=== PATIENT | female | born 1940 | race Caucasian/White ===

== ENCOUNTER 2019-08-09 10:42 | Emergency (ER) | payer MEDICARE, OTHER, SELFPAY ==
[2019-08-09] VITALS (8 sets, daily range): BP systolic 101–122; BP diastolic 46–70; PULSE 64–86; RESP 16–21; TEMP 36.9; O2SAT 92–96; BMI 27.6
--- NOTE | 2019-08-09 11:04 | CTR_ITS ---
PROCEDURE INFORMATION: Exam: CT Head Without Contrast Exam date and time: 08/09/2019 12:17 PM Age: 79 years old Clinical indication: Altered mental status/memory loss; Additional info: Fever AMS TECHNIQUE: Imaging protocol: Computed tomography of the head without contrast. Radiation optimization: All CT scans at this facility use at least one of these dose optimization techniques: automated exposure control; mA and/or kV adjustment per patient size (includes targeted exams where dose is matched to clinical indication); or iterative reconstruction. COMPARISON: CT head wo con* [id number] 09/25/2017 7:06 AM RADIATION DOSE METRICS: Total DLP: 873.41 mGy-cm FINDINGS: Brain: Mild cerebral atrophy and ischemic leukoencephalopathy. Ventricles: Normal. No ventriculomegaly. Bones/joints: Unremarkable. No acute fracture. Sinuses: Increased moderate right maxillary sinus disease. Mastoid air cells: Visualized mastoid air cells are well aerated. Vasculature: Moderate calcified intracranial atherosclerotic vessel disease. Soft tissues: Unremarkable. CT/CT head wo con* [id number] IMPRESSION: 1. Increased moderate right maxillary sinus disease. 2. No acute intracranial findings. Radiation Dose CTDIVOL = (mGy): DLP = 873.41 (mGy-cm)
--- NOTE | 2019-08-09 11:04 | XRR_ITS ---
PROCEDURE INFORMATION: Exam: XR Chest, 1 View Exam date and time: 08/09/2019 12:36 PM Age: 79 years old Clinical indication: Fever and other: AMS TECHNIQUE: Imaging protocol: XR of the chest Views: 1 view. COMPARISON: CR Chest 1 [place] [id number] 11/07/2017 8:15 PM FINDINGS: Lungs: Unremarkable. No consolidation. Pleural space: Unremarkable. No pleural effusion. No pneumothorax. Heart/Mediastinum: Unremarkable. No cardiomegaly. Vasculature: Calcification of the thoracic aorta and/or great vessels consistent with atherosclerotic vessel disease. Diaphragm: Stable elevation of the right hemidiaphragm consistent with eventration. Bones/joints: Mild thoracic spondylosis. XR/XR chest 1V portable [id number] IMPRESSION: Stable elevation of the right hemidiaphragm consistent with eventration.
--- NOTE | 2019-08-09 11:05 | ECG_ITS ---
Measurements Intervals [place] Rate: 81 P: 64 OR: 190 QRS: 16 QRSD: 94 T: 44 QT: 376 QTc: 439 SINUS RHYTHM LOW QRS VOLTAGE IN PRECORDIAL LEADS [QRS DEFLECTION < 1.0 mV IN CHEST LEADS] ANTEROSEPTAL MYOCARDIAL INFARCTION , OF INDETERMINATE AGE [40+ ms Q WAVE IN V1-V4] Compared to ECG 11/07/2017 20:14:54 Myocardial infarct finding now present ST (T wave) deviation no longer present Electronically Signed On 08-10-2019 7:47:23 CDT by Balbir Ruiz M.D. [email or web address]
[2019-08-09 11:17] LABS: Basophils % 0.5 %; Hematocrit 43.6 % (37.0-47.0); Hemoglobin 14.5 g/dL (11.5-15.3); Lymphocytes % 25.1 %; Mean Corpuscular HGB Conc 33.3 g/dL (30.0-36.0); Mean Corpuscular Hemoglobin 31.4 pg (28.0-34.0); Mean Corpuscular Volume 94.4 fL (81-99); Mean Platelet Volume 10.2 fL (7.4-10.4); Monocytes # 0.3 10^3/uL (0.2-0.9); Monocytes % 6.3 %; Neutrophils # 2.7 10^3/uL (1.8-7.7); Neutrophils % 66.8 %; Nucleated Red Blood Cells % 0 %; Platelet Count 273 10^3/cmm (130-400); Red Blood Count 4.62 10^6/uL (4.1-5.3); Red Cell Distribution Width 12.9 % (12.1-15.1)
[2019-08-09] MEDS: sodium chloride 0.9% 1,000 ML 999 ML IV (11:24)
[2019-08-09 11:25] LABS: Urine Color Yellow (Yellow)
[2019-08-09 11:26] LABS: Alanine Aminotransferase < 5 U/L (0-33); Albumin Level 3.9 g/dL (3.5-5.2); Alkaline Phosphatase 55 IU/L (35-105); Anion Gap 16.5 (5-19); Aspartate Amino Transferase 31 U/L (0-32); Blood Urea Nitrogen 30 mg/dL (8-23); Calcium 9.3 mg/dL (8.5-10.5); Carbon Dioxide 25 mmol/L (22-29); Chloride 106 mmol/L (98-107); Globulin 2.7 g/dL (1.3-4.6); Glucose 160 mg/dL (65-115); Osmolality Calculated 299 mOsm/kg (285-295); Potassium 3.5 mmol/L (3.5-5.1); Sodium 144 mmol/L (136-145); Total Bilirubin 0.8 mg/dL (0.15-1.2); Total Protein 6.6 g/dL (6.6-8.7)
[2019-08-09 11:26] LABS: Add Urine Microscopic? YES; Bilirubin Urine Neg (NEGATIVE); Blood Urine 2+ (Negative); Glucose Urine UA Norm (Normal); Ketones Urine 1+ (Negative); Leukocyte Esterase Urine Trace (Negative); Nitrate Urine Negative (Negative); Protein Urine 1+ (Negative); Urine Appearance Cloudy (CLEAR); Urobilinogen Urine 4 mg/dL (Negative); pH Urine 5 (5-7)
[2019-08-09 11:27] LABS: ABG PCO2 38.9 mmHg (35-45); ABG PH Result 7.45 (7.35-7.45); Arterial Blood Gas Hematocrit 44.4 % (37-47); Base Excess ABG 3.2 mmol/L (-2.0-2.0); Blood Gas Allen Test Pos; Blood Gas Sample Site Brachial, right; Blood Gas Sample Type Arterial; HCO3 ABG 27.3 mmol/L (22-26); Oxygen Device NC; PO2 ABG 67.4 mmHg (80.0-100.0)
[2019-08-09 11:30] LABS: Bacteria Urine 3+; Mucus Urine 4+; Transitional Epi Cells Urine 0-4 /hpf; WBC Urine 15-25 /hpf (0-5)
[2019-08-09 11:31] LABS: Add Urine Culture? Yes
--- NOTE | 2019-08-09 11:40 | W.ED.AMS ---
HPI - Altered Mental Status General: Chief Complaint: Altered Mental Status Stated Complaint: AMS; FEVER Time Seen by Provider: 08/09/19 10:45 History of Present Illness: HPI narrative: 79-year-old [facility] patient with a history of Lewy body dementia. She presents with decreased mental status, and a temperature in the penitentiary over 100. Staff states she is normally very conversant, but confused. They have noticed a decrease in oral intake, activity, and verbalization in the past day or so. MD complaint: altered mental status Onset (ago): hour(s) Timing confirmed by: caregiver Severity: moderate Review of Systems Const: Reports: fever(s); Denies: chills ENMT: Denies: swelling of lips/tongue, epistaxis or post nasal drip Card: Denies: chest pain, palpitations, irregular heart rhythm, swelling of feet/ankles or dyspnea on exertion Resp: Denies: dyspnea, productive cough, non-productive cough or wheezing GI: Denies: abdominal pain, nausea or vomiting : Denies: dysuria, urinary frequency or urinary urgency Musc: Denies: neck pain, back pain, joint redness or joint warmth Skin/Breast: Denies: rash, pruritus or erythema Neuro: Reports: confusion; Denies: headache(s) or dizziness Psych: Denies: anxiety PFSH ED PFSH: Social History Smoking and tobacco status: never smoked Physical Exam Const: GENERAL APPEARANCE: lethargic and frail appearing ORIENTATION/CONSCIOUSNESS: Yes oriented to person and Yes lethargic HENMT: COMMON NORMALS: normocephalic, external ears normal and Normal external nose present HEAD & SCALP: normocephalic FACE & SINUS: normal facial exam NOSE: Normal external nose present and No nasal discharge present EXTERNAL EAR: Yes external ears normal MOUTH: tongue normal THROAT: no peritonsillar mass Eye: COMMON NORMALS: Equal, round and reactive pupils present, EOMs intact bilaterally and conjunctivae normal EYELID: eyelids normal CONJUNCTIVA: Yes conjunctivae normal PUPIL: Yes Equal, round and reactive pupils present Neck/C-Spine: GENERAL: No tracheal deviation Chest: COMMONS NORMALS: normal inspection of the chest CHEST: No tenderness Resp: COMMON NORMALS: clear to auscultation bilaterally EFFORT & INSPECTION: No tachypneic, No respiratory distress, No retractions, No uses accessory muscles and No tracheal deviation AUSCULTATION: clear to auscultation bilaterally, no rhonchi, no wheezes and lung sounds not diminished Cardio: COMMON NORMALS: regular rate and regular rhythm RATE: regular rate RHYTHM: regular rhythm PERIPHERAL PULSES: radial pulses present GI: INSPECTION: No abdominal distension AUSCULTATION: No Hyperactive bowel sounds present and No Hypoactive bowel sounds present PALPATION: No Guarding due to palpation present (GI) and No Rigid due to palpation PERCUSSION: no dullness to percussion and no tympanic to percussion Neuro: SENSORIUM/ORIENTATION: Yes oriented to person and Yes lethargic Skin: COMMON NORMALS: no rashes or lesions noted GENERAL SKIN EXAM: no rashes or lesions noted Course Vital Signs: Vital signs: Vital Signs Temperature 98.5 F 08/09/19 10:50 Pulse Rate 72 08/09/19 14:40 Respiratory Rate 21 H 08/09/19 14:40 Blood Pressure 101/56 08/09/19 14:40 Pulse Oximetry 95 08/09/19 14:40 MDM - Altered Mental Status MDM Narrative: Medical decision making narrative: 79-year-old female with elevated temperature in the [facility]itent[facility], and some mental status change. Her white blood cell count is 4. Her BUN is 30. Her other laboratory is benign. She does have a urinalysis showing urinary tract infection. Head CT is negative for acute neurologic change, but there is presence of maxillary sinusitis. Chest x-ray is stable. She will be treated for the urinary tract infection which is the most likely cause of her fever and mental status change. She will be allowed back to the penit[facility]iary. Lab Data: Labs: Lab Results 08/09/19 08/09/19 08/09/19 Range/Units 10:32 10:32 11:05 WBC 4.0 (4.0-10.0) 10^3/ uL RBC 4.62 (4.1-5.3) 10^6/u L Hgb 14.5 (11.5-15.3) g/dL Hct 43.6 (37.0-47.0) % MCV 94.4 (81-99) fL MCH 31.4 (28.0-34.0) pg MCHC 33.3 (30.0-36.0) g/dL RDW 12.9 (12.1-15.1) % Plt Count 273 (130-400) 10^3/c mm MPV 10.2 (7.4-10.4) fL Neut % (Auto) 66.8 % Lymph % (Auto) 25.1 % Ferry % (Auto) 6.3 % Eos % (Auto) 1.0 % Baso % (Auto) 0.5 % Neut # (Auto) 2.7 (1.8-7.7) 10^3/u L Lymph # (Auto) 1.0 (0.8-4.8) 10^3/u L Ferry # (Auto) 0.3 (0.2-0.9) 10^3/u L Eos # (Auto) 0.0 (0.0-0.8) 10^3/u L Baso # (Auto) 0.0 (0.0-0.1) 10^3/u L Nucleated RBC % (a uto) 0 % Nucleated RBCs # 0.0 /100WBC Specimen Type Sample Site ABG pH (7.35-7.45) ABG pCO2 (35-45) mmHg ABG pO2 (80.0-100.0) mmH g ABG HCO3 (22-26) mmol/L ABG Base Excess (-2.0-2.0) mmol/ L Aakash Test Hematocrit (37-47) % O2 Delivery Device O2 Liters/Min % Used Car Make Ready Worker ID Sodium 144 (136-145) mmol/L Potassium 3.5 (3.5-5.1) mmol/L Chloride 106 (98-107) mmol/L Carbon Dioxide 25 (22-29) mmol/L Anion Gap 16.5 (5-19) BUN 30 H (8-23) mg/dL Creatinine 0.6 (0.5-0.9) mg/dL Glucose 160 H (65-115) mg/dL Calculated Osmolal ity 299 H (285-295) mOsm/k g Lactate (0.5-2.2) mmol/L Calcium 9.3 (8.5-10.5) mg/dL Total Bilirubin 0.8 (0.15-1.2) mg/dL AST 31 (0-32) U/L ALT < 5 (0-33) U/L Alkaline Phosphata se 55 (35-105) IU/L C-Reactive Protein 2.3 (0.0-4.9) mg/L Total Protein 6.6 (6.6-8.7) g/dL Albumin 3.9 (3.5-5.2) g/dL Globulin 2.7 (1.3-4.6) g/dL Urine Color Yellow (Yellow) Urine Appearance Cloudy A (CLEAR) Urine pH 5 (5-7) Ur Specific Gravit y 1.030 (1.005-1.030) Urine Protein 1+ H (Negative) Urine Glucose (UA) Norm (Normal) Urine Ketones 1+ H (Negative) Urine Blood 2+ H (Negative) Urine Nitrate Negative (Negative) Urine Bilirubin Neg (NEGATIVE) Urine Urobilinogen 4 H (Negative) mg/dL Ur Leukocyte Ann ase Trace H (Negative) Urine RBC 5-10 H (0-2) /hpf Urine WBC 15-25 H (0-5) /hpf Ur Squamous Epith Cells 5-10 H (0-5) Ur Transition Epit h Cell 0-4 /hpf Urine Bacteria 3+ H (NONE) Urine Mucus 4+ Urine Yeast Trace 08/09/19 08/09/19 Range/Units 11:15 11:30 WBC (4.0-10.0) 10^3/ uL RBC (4.1-5.3) 10^6/u L Hgb (11.5-15.3) g/dL Hct (37.0-47.0) % MCV (81-99) fL MCH (28.0-34.0) pg MCHC (30.0-36.0) g/dL RDW (12.1-15.1) % Plt Count (130-400) 10^3/c mm MPV (7.4-10.4) fL Neut % (Auto) % Lymph % (Auto) % Ferry % (Auto) % Eos % (Auto) % Baso % (Auto) % Neut # (Auto) (1.8-7.7) 10^3/u L Lymph # (Auto) (0.8-4.8) 10^3/u L Ferry # (Auto) (0.2-0.9) 10^3/u L Eos # (Auto) (0.0-0.8) 10^3/u L Baso # (Auto) (0.0-0.1) 10^3/u L Nucleated RBC % (a uto) % Nucleated RBCs # /100WBC Specimen Type Arterial Sample Site Brachial, right ABG pH 7.45 (7.35-7.45) ABG pCO2 38.9 (35-45) mmHg ABG pO2 67.4 L (80.0-100.0) mmH g ABG HCO3 27.3 H (22-26) mmol/L ABG Base Excess 3.2 H (-2.0-2.0) mmol/ L Aakash Test Pos Hematocrit 44.4 (37-47) % O2 Delivery Device Nc O2 Liters/Min 2.0 % Used [employer] Ready Worker ID jmn Sodium (136-145) mmol/L Potassium (3.5-5.1) mmol/L Chloride (98-107) mmol/L Carbon Dioxide (22-29) mmol/L Anion Gap (5-19) BUN (8-23) mg/dL Creatinine (0.5-0.9) mg/dL Glucose (65-115) mg/dL Calculated Osmolal ity (285-295) mOsm/k g Lactate 1.5 (0.5-2.2) mmol/L Calcium (8.5-10.5) mg/dL Total Bilirubin (0.15-1.2) mg/dL AST (0-32) U/L ALT (0-33) U/L Alkaline Phosphata se (35-105) IU/L C-Reactive Protein (0.0-4.9) mg/L Total Protein (6.6-8.7) g/dL Albumin (3.5-5.2) g/dL Globulin (1.3-4.6) g/dL Urine Color (Yellow) Urine Appearance (CLEAR) Urine pH (5-7) Ur Specific Gravit y (1.005-1.030) Urine Protein (Negative) Urine Glucose (UA) (Normal) Urine Ketones (Negative) Urine Blood (Negative) Urine Nitrate (Negative) Urine Bilirubin (NEGATIVE) Urine Urobilinogen (Negative) mg/dL Ur Leukocyte Ann ase (Negative) Urine RBC (0-2) /hpf Urine WBC (0-5) /hpf Ur Squamous Epith Cells (0-5) Ur Transition Epit h Cell /hpf Urine Bacteria (NONE) Urine Mucus Urine Yeast Discharge Plan Discharge Patient Disposition: [facility] [place] Clinical Impression: Acute UTI, Acute bacterial sinusitis Condition: Stable Prescriptions: New cefdinir 300 mg capsule 300 mg PO BID 10 Days Qty: 20 RF: 0 No Action Tylenol 325 mg Tablet 325 mg PO QID PRN (Reason: Pain) RF: 0 trazodone 50 mg Tablet 25 mg PO BEDTIME RF: 0 Klonopin 0.5 mg Tablet 0.5 mg PO TID RF: 0 simvastatin 10 mg Tablet 10 mg PO BEDTIME RF: 0 amlodipine 10 mg Tablet 10 mg PO DAILY RF: 0 Dulcolax (bisacodyl) 10 mg Suppository 10 mg KS DAILY PRN (Reason: Constipation) RF: 0 Paxil 20 mg Tablet 20 mg PO DAILY RF: 0 Fleet Enema 19-7 gram/118 mL Enema 118 ml KS DAILY PRN (Reason: Constipation) RF: 0 Miralax 17 gram/dose Powder 17 g PO DAILY RF: 0 carbidopa-levodopa 10-100 mg Tablet,Disintegrating 1 tab PO TID RF: 0 Voltaren 1 % Gel See Rx Instructions .ROUTE .COMPLEX RF: 0 Seroquel XR 150 mg Tablet Extended Release 24 Hr 150 mg PO DAILY RF: 0 clopidogrel 75 mg Tablet 75 mg PO DAILY RF: 0 levothyroxine 50 mcg Tablet 50 mcg PO DAILY RF: 0 Discharge Orders: Discharge Order (Routine); Ordered 08/09/19 Ordered By: Jeremy Rice Referrals: Dotty Callaway MD [Family Provider] - 4-7 days Shalom Doyle Jr, MD [Primary Care Provider] - Discharge Diet: Usual diet Discharge Activity: Increase activity as tolerated Patient Instructions: Urinary Tract Infection in Women (ED), Acute Bacterial Rhinosinusitis (ED) Activity Restrictions/Additional Instructions: Return for continued temperatures despite 2-3 doses of antibiotics, worsening mental status despite treatment, other concerning symptoms antibiotics as directed push oral intake, especially fluids. Oxygen by nasal cannula at 2 L as needed for pulse ox less than 92%. Coding Level of Care Code ED English As A Second Language Teacher for Chg Fwd Exam Comprehensive
--- NOTE | 2019-08-09 11:44 | XRR_ITS ---
PROCEDURE INFORMATION: Exam: XR Left Hip with Pelvis when Performed Exam date and time: 08/09/2019 11:45 AM Age: 79 years old Clinical indication: Hip pain; Left hip TECHNIQUE: Imaging protocol: XR Left hip with pelvis when performed. Views: 2 or 3 views. COMPARISON: CR Pelvis AP 1 or 2 views* [id number] 09/25/2017 7:27 AM FINDINGS: Bones/joints: Unremarkable. No acute fracture. Soft tissues: Unremarkable. XR/XR hip LT 2-3V wo/w pel* [id number] IMPRESSION: No acute findings.
[2019-08-09 12:06] LABS: Lactate (Lactic Acid level) 1.5 mmol/L (0.5-2.2)
[2019-08-09 12:41] LABS: C Reactive Protein 2.3 mg/L (0.0-4.9)
[2019-08-09] MEDS: cefTRIAXone 1,000 MG in sodium chloride 0.9% (plus) 50 ML 100 MG IV (12:42)
== END 2019-08-09 15:42 | disposition skilled nursing facility (03) ==
PROVIDERS: Emergency Provider Emergency Medicine; Family Provider Family Medicine; PCP Family Medicine
DX: N39.0 Urinary tract infection, site not specified (principal); J01.80 Other acute sinusitis; Z79.02 Long term (current) use of antithrombotics/antiplatelets
CPT/HCPCS: 12345; 36415; 36600; 70450; 71045; 73502; 80053; 81001; 82803; 83605; 85025; 86140; 87040; 87077; 87086; 93005; 96365; 99283; 99284; J0696; J7030

== ENCOUNTER 2019-08-15 17:44 | Emergency (ER) | payer MEDICARE, OTHER, SELFPAY ==
[2019-08-15 17:45] VITALS: RESP 18; BMI 25.0
--- NOTE | 2019-08-15 18:21 | XRR_ITS ---
PROCEDURE INFORMATION: Exam: XR Chest, 1 View Exam date and time: 08/15/2019 6:52 PM Age: 79 years old Clinical indication: Other: Weak; Additional info: Weakness TECHNIQUE: Imaging protocol: XR of the chest Views: 1 view. COMPARISON: CR (CHEST, ) 08/09/2019 12:28 PM FINDINGS: Lungs: There is unchanged elevation of the right hemidiaphragm with adjacent compressive atelectasis in the right lung base. The lungs are otherwise clear. The vascularity is within normal limits in there is no CHF. Pleural space: Unremarkable. No pleural effusion. No pneumothorax. Heart/Mediastinum: Unremarkable. No cardiomegaly. Bones/joints: No acute abnormality. XR/XR chest 1V portable [id number] IMPRESSION: Unchanged scarring right lung base. The lungs are otherwise clear.
[2019-08-15 18:42] LABS: Basophils % 0.9 %; Eosinophils # 0.1 10^3/uL (0.0-0.8); Eosinophils % 1.8 %; Hematocrit 42.6 % (37.0-47.0); Hemoglobin 13.8 g/dL (11.5-15.3); Lymphocytes # 1.2 10^3/uL (0.8-4.8); Lymphocytes % 26.8 %; Mean Corpuscular HGB Conc 32.4 g/dL (30.0-36.0); Mean Corpuscular Hemoglobin 30.9 pg (28.0-34.0); Mean Corpuscular Volume 95.3 fL (81-99); Mean Platelet Volume 9.7 fL (7.4-10.4); Monocytes # 0.4 10^3/uL (0.2-0.9); Monocytes % 8.6 %; Neutrophils # 2.8 10^3/uL (1.8-7.7); Neutrophils % 61.9 %; Nucleated Red Blood Cells % 0 %; Platelet Count 268 10^3/cmm (130-400); Red Blood Count 4.47 10^6/uL (4.1-5.3); Red Cell Distribution Width 12.9 % (12.1-15.1); White Blood Count 4.5 10^3/uL (4.0-10.0)
[2019-08-15 18:56] LABS: Lactate (Lactic Acid level) 1.2 mmol/L (0.5-2.2)
[2019-08-15 19:30] LABS: Alanine Aminotransferase 15 U/L (0-33); Albumin Level 3.7 g/dL (3.5-5.2); Alkaline Phosphatase 63 IU/L (35-105); Anion Gap 16.8 (5-19); Aspartate Amino Transferase 23 U/L (0-32); Blood Urea Nitrogen 20 mg/dL (8-23); C Reactive Protein 1.9 mg/L (0.0-4.9); Carbon Dioxide 26 mmol/L (22-29); Chloride 105 mmol/L (98-107); Glucose 100 mg/dL (65-115); Lipase 29 U/L (13-60); Osmolality Calculated 295 mOsm/kg (285-295); Potassium 3.8 mmol/L (3.5-5.1); Sodium 144 mmol/L (136-145); Total Bilirubin 0.4 mg/dL (0.15-1.2); Total Protein 6.7 g/dL (6.6-8.7)
--- NOTE | 2019-08-15 20:01 | PC.NURSE ---
Daughter of the patient requested for water for the patient if possible. OKayed by doctor, water was given.
[2019-08-15 20:03] VITALS: BP 131/67; PULSE 73; RESP 18; O2SAT 93
[2019-08-15 20:20] LABS: Urine Appearance Cloudy (CLEAR); Urine Color Yellow (Yellow); pH Urine 6 (5-7)
[2019-08-15 20:21] LABS: Add Urine Microscopic? YES; Bilirubin Urine Neg (NEGATIVE); Blood Urine Neg (Negative); Glucose Urine UA Trace (Normal); Ketones Urine Negative (Negative); Leukocyte Esterase Urine 1+ (Negative); Nitrate Urine Positive (Negative); Protein Urine Trace (Negative); Urobilinogen Urine Norm (Negative)
[2019-08-15 21:04] LABS: RBC Urine 25-40 /hpf (0-2); Squamous Epithelial Cell Urine 15-25 (0-5)
[2019-08-15 21:05] LABS: Add Urine Culture? No; Bacteria Urine 2+; Mucus Urine 4+; Renal Epithelial Cells Urine N /hpf
--- NOTE | 2019-08-15 21:17 | W.ED.GENADLT ---
HPI - General Adult General: Chief complaint: General Medical Stated complaint: UTI NOT GETTING BETTER Time Seen by Provider: 08/15/19 18:06 Source: patient and family Mode of arrival: EMS Limitations: other (Advanced dementia) History of Present Illness: HPI narrative: Patient is a resident of a local [place] [facility] care facility was brought in via ambulance. The patient has advanced dementia and does not answer any of my questions. All of the history was given by her daughter. The patient was seen here about a week ago and diagnosed with a urinary tract infection. She was discharged home on cefdinir. The patient was initially able to feed herself but in the last 3 days also she has noticed been able to and has been a total assist. Her baseline level of functioning is really only able to feed herself. Everything else she requires complete assistance with. Because she has not felt herself in the last 3 days or so the patient was brought back for reevaluation to see if there was a reason for this. Review of Systems General: Reports: ROS unobtainable due to mental status and Other (Dementia) PFSH ED PFSH: Social History Smoking and tobacco status: unknown if ever smoked Physical Exam Const: COMMON NORMALS: no acute distress, average body habitus, patient oriented x3, no limitations, healthy appearing, alert and well nourished HENMT: COMMON NORMALS: normocephalic, atraumatic and moist oral mucous membranes HEAD & SCALP: normocephalic and atraumatic Eye: COMMON NORMALS: Equal, round and reactive pupils present, EOMs intact bilaterally, conjunctivae normal and no scleral icterus CONJUNCTIVA: Yes conjunctivae normal PUPIL: Yes Equal, round and reactive pupils present Neck/C-Spine: COMMON NORMALS: full ROM, supple, no meningeal signs, no JVD and No carotid bruits Chest: COMMONS NORMALS: normal inspection of the chest and normal palpation of entire chest wall Resp: COMMON NORMALS: normal respiratory effort, No retractions, No use of accessory muscles, clear to auscultation bilaterally and percussion normal AUSCULTATION: clear to auscultation bilaterally PERCUSSION: percussion normal Cardio: COMMON NORMALS: no JVD, regular rate, regular rhythm, S1 normal heart sound present, S2 normal heart sound present, No gallops present (Cardio), No clicks present (Cardio), No murmurs present (Cardio), No rub (Cardio) and Peripheral pulses 2+ throughout RATE: regular rate RHYTHM: regular rhythm HEART SOUNDS: S1 normal heart sound present and S2 normal heart sound present PERIPHERAL PULSES: Peripheral pulses 2+ throughout GI: COMMON NORMALS: Normal to inspection, nondistended, normoactive bowel sounds present, Soft to palpation, non-tender, No hepatosplenomegaly present, no masses and no bruits PALPATION: Yes Soft to palpation and Yes No hepatosplenomegaly present : COMMON NORMALS: Yes no CVA tenderness BLADDER/KIDNEY EXAM: Yes no CVA tenderness Back/Pelvis: COMMON NORMALS: no CVA tenderness Extremity: COMMON NORMALS: normal to inspection, full ROM, capillary refill normal, no calf tenderness and no pedal edema Neuro: COMMON NORMALS: patient oriented x3 SENSORIUM/ORIENTATION: Yes alert MENINGEAL SIGNS: Yes no meningeal signs Skin: COMMON NORMALS: no rashes or lesions noted, no wounds, turgor normal, no jaundice, no petechiae and no mottling GENERAL SKIN EXAM: no rashes or lesions noted and turgor normal Course Reevaluation(s): Reevaluation #1: Discussed lab and imaging findings with daughter. Labs are unremarkable other than possible UTI. She is on cefdinir chronically for her UTI and going by her cultures that appears to be appropriate. I will give her a dose of IM ceftriaxone here and discharge her home with 2 more doses. Her daughter voiced understanding and is in agreement with the plan. Also explained to the daughter that this may be a further decline in her dementia and patient may possibly be getting to end-stage dementia. Time: 21:17 Vital Signs: Vital signs: Vital Signs Pulse Rate 75 08/15/19 23:53 Respiratory Rate 18 08/15/19 23:53 Blood Pressure 114/73 08/15/19 23:53 Pulse Oximetry 91 08/15/19 23:53 MDM - General Adult MDM Narrative: Medical decision making narrative: Patient with advanced dementia who presents to the emergency department from [place] [facility] [place] because she is not feeding herself. She is on antibiotics for UTI currently. Uncertain if she is taking her medications. Evaluation here only shows a possible UTI, she was given a dose of intramuscular ceftriaxone and discharged home with a prescription for intramuscular ceftriaxone for 2 more days at the [place] [facility]. Daughter counseled that the patient may be declining secondary to dementia and may not necessarily be due to a medical condition. She is discharged back to her nursing facility. Medical Records: Attestation: I reviewed the patient's medical records. Lab Data: Attestation: I reviewed the patient's lab results. Labs: Lab Results 08/15/19 08/15/19 08/15/19 Range/Units 18:00 18:30 18:30 WBC 4.5 (4.0-10.0) 10^3/ uL RBC 4.47 (4.1-5.3) 10^6/u L Hgb 13.8 (11.5-15.3) g/dL Hct 42.6 (37.0-47.0) % MCV 95.3 (81-99) fL MCH 30.9 (28.0-34.0) pg MCHC 32.4 (30.0-36.0) g/dL RDW 12.9 (12.1-15.1) % Plt Count 268 (130-400) 10^3/c mm MPV 9.7 (7.4-10.4) fL Neut % (Auto) 61.9 % Lymph % (Auto) 26.8 % Wheeler % (Auto) 8.6 % Eos % (Auto) 1.8 % Baso % (Auto) 0.9 % Neut # (Auto) 2.8 (1.8-7.7) 10^3/u L Lymph # (Auto) 1.2 (0.8-4.8) 10^3/u L Wheeler # (Auto) 0.4 (0.2-0.9) 10^3/u L Eos # (Auto) 0.1 (0.0-0.8) 10^3/u L Baso # (Auto) 0.0 (0.0-0.1) 10^3/u L Nucleated RBC % (a uto) 0 % Nucleated RBCs # 0.0 /100WBC Sodium 144 (136-145) mmol/L Potassium 3.8 (3.5-5.1) mmol/L Chloride 105 (98-107) mmol/L Carbon Dioxide 26 (22-29) mmol/L Anion Gap 16.8 (5-19) BUN 20 (8-23) mg/dL Creatinine 0.5 (0.5-0.9) mg/dL Glucose 100 (65-115) mg/dL Calculated Osmolal ity 295 (285-295) mOsm/k g Lactate (0.5-2.2) mmol/L Calcium 10.0 (8.5-10.5) mg/dL Total Bilirubin 0.4 (0.15-1.2) mg/dL AST 23 (0-32) U/L ALT 15 (0-33) U/L Alkaline Phosphata se 63 (35-105) IU/L C-Reactive Protein 1.9 (0.0-4.9) mg/L Total Protein 6.7 (6.6-8.7) g/dL Albumin 3.7 (3.5-5.2) g/dL Globulin 3.0 (1.3-4.6) g/dL Lipase 29 (13-60) U/L Urine Color Yellow (Yellow) Urine Appearance Cloudy (CLEAR) Urine pH 6 (5-7) Ur Specific Gravit y 1.030 (1.005-1.030) Urine Protein Trace (Negative) Urine Glucose (UA) Trace H (Normal) Urine Ketones Negative (Negative) Urine Blood Neg (Negative) Urine Nitrate Positive H (Negative) Urine Bilirubin Neg (NEGATIVE) Urine Urobilinogen Norm (Negative) mg/dL Ur Leukocyte Ann ase 1+ H (Negative) Urine RBC 25-40 H (0-2) /hpf Urine WBC 5-10 H (0-5) /hpf Ur Squamous Epith Cells 15-25 H (0-5) Ur Transition Epit h Cell 5-10 /hpf Ur Renal Epithelia l Cell N /hpf Urine Bacteria 2+ H (NONE) Urine Mucus 4+ 06/05/20 Range/Units 18:30 WBC (4.0-10.0) 10^3/ uL RBC (4.1-5.3) 10^6/u L Hgb (11.5-15.3) g/dL Hct (37.0-47.0) % MCV (81-99) fL MCH (28.0-34.0) pg MCHC (30.0-36.0) g/dL RDW (12.1-15.1) % Plt Count (130-400) 10^3/c mm MPV (7.4-10.4) fL Neut % (Auto) % Lymph % (Auto) % Wheeler % (Auto) % Eos % (Auto) % Baso % (Auto) % Neut # (Auto) (1.8-7.7) 10^3/u L Lymph # (Auto) (0.8-4.8) 10^3/u L Wheeler # (Auto) (0.2-0.9) 10^3/u L Eos # (Auto) (0.0-0.8) 10^3/u L Baso # (Auto) (0.0-0.1) 10^3/u L Nucleated RBC % (a uto) % Nucleated RBCs # /100WBC Sodium (136-145) mmol/L Potassium (3.5-5.1) mmol/L Chloride (98-107) mmol/L Carbon Dioxide (22-29) mmol/L Anion Gap (5-19) BUN (8-23) mg/dL Creatinine (0.5-0.9) mg/dL Glucose (65-115) mg/dL Calculated Osmolal ity (285-295) mOsm/k g Lactate 1.2 (0.5-2.2) mmol/L Calcium (8.5-10.5) mg/dL Total Bilirubin (0.15-1.2) mg/dL AST (0-32) U/L ALT (0-33) U/L Alkaline Phosphata se (35-105) IU/L C-Reactive Protein (0.0-4.9) mg/L Total Protein (6.6-8.7) g/dL Albumin (3.5-5.2) g/dL Globulin (1.3-4.6) g/dL Lipase (13-60) U/L Urine Color (Yellow) Urine Appearance (CLEAR) Urine pH (5-7) Ur Specific Gravit y (1.005-1.030) Urine Protein (Negative) Urine Glucose (UA) (Normal) Urine Ketones (Negative) Urine Blood (Negative) Urine Nitrate (Negative) Urine Bilirubin (NEGATIVE) Urine Urobilinogen (Negative) mg/dL Ur Leukocyte Ann ase (Negative) Urine RBC (0-2) /hpf Urine WBC (0-5) /hpf Ur Squamous Epith Cells (0-5) Ur Transition Epit h Cell /hpf Ur Renal Epithelia l Cell /hpf Urine Bacteria (NONE) Urine Mucus Imaging Data^: CXR: Radiologist's impression: [facility] [address] [place] [address] XRay Report Signed Patient: Kate Rondon #: [id number] : 1940Acct#:[id number] Age/Sex: 79 / FADM Date: 08/15/19 Loc: ERRoom/Bed: Attending Dr: Ordering Provider/Ordering MD: Rolo Villegas MD, [facility] Date of Service: 08/15/19 Procedure(s): XR chest 1V portable [id number] Accession Number(s): [id number] Report Number: [id number] PROCEDURE INFORMATION: Exam: XR Chest, 1 View Exam date and time: 08/15/2019 6:52 PM Age: 79 years old Clinical indication: Other: Weak; Additional info: Weakness TECHNIQUE: Imaging protocol: XR of the chest Views: 1 view. COMPARISON: CR (CHEST, ) 08/09/2019 12:28 PM FINDINGS: Lungs: There is unchanged elevation of the right hemidiaphragm with adjacent compressive atelectasis in the right lung base. The lungs are otherwise clear. The vascularity is within normal limits in there is no CHF. Pleural space: Unremarkable. No pleural effusion. No pneumothorax. Heart/Mediastinum: Unremarkable. No cardiomegaly. Bones/joints: No acute abnormality. XR/XR chest 1V portable [id number] IMPRESSION: Unchanged scarring right lung base. The lungs are otherwise clear. Dictated By:Radha Vincent Signed By:Melodie Vincent Date/Time:08/15/191905 DD/ 04 Discharge Plan Discharge Patient Disposition: Xfer [facility] Fac Not MCR Cert Clinical Impression: Acute UTI Condition: Stable Prescriptions: New ceftriaxone 1 gram recon soln 1 gm IM DAILY Qty: 2 RF: 0 Continued Tylenol 325 mg Tablet 325 mg PO QID PRN (Reason: Pain) RF: 0 trazodone 50 mg Tablet 25 mg PO BEDTIME RF: 0 Klonopin 0.5 mg Tablet 0.5 mg PO TID RF: 0 simvastatin 10 mg Tablet 10 mg PO BEDTIME RF: 0 amlodipine 10 mg Tablet 10 mg PO DAILY RF: 0 Dulcolax (bisacodyl) 10 mg Suppository 10 mg [place] DAILY PRN (Reason: Constipation) RF: 0 Paxil 20 mg Tablet 20 mg PO DAILY RF: 0 Fleet Enema 19-7 gram/118 mL Enema 118 ml IL DAILY PRN (Reason: Constipation) RF: 0 Miralax 17 gram/dose Powder 17 g PO DAILY RF: 0 carbidopa-levodopa 10-100 mg Tablet,Disintegrating 1 tab PO TID RF: 0 Voltaren 1 % Gel See Rx Instructions .ROUTE .COMPLEX RF: 0 Seroquel XR 150 mg Tablet Extended Release 24 Hr 150 mg PO DAILY RF: 0 clopidogrel 75 mg Tablet 75 mg PO DAILY RF: 0 levothyroxine 50 mcg Tablet 50 mcg PO DAILY RF: 0 cefdinir 300 mg capsule 300 mg PO BID 10 Days Qty: 20 RF: 0 Discharge Orders: Discharge Order (Routine); Ordered 08/15/19 Ordered By: Rolo Villegas Referrals: Dotty Callaway MD [Primary Care Provider] - 4-7 days Patient Instructions: Urinary Tract Infection in Women (ED) Activity Restrictions/Additional Instructions: Return for any new or worsening symptoms. Follow-up with her primary care provider within 1 week. This may be the beginning of decline of her dementia, but we will see if it improves with the antibiotics. Coding Level of Care Code ED Field Account Director for Elizabeth Paulino
[2019-08-15] MEDS: cefTRIAXone 1,000 mg SDV 1000 MG IM (21:46)
[2019-08-15 21:49] VITALS: BP 120/65; PULSE 76; RESP 18; O2SAT 91
[2019-08-15 23:53] VITALS: BP 114/73; PULSE 75; RESP 18; O2SAT 91
--- NOTE | 2019-08-16 00:07 | PC.NURSE ---
care and report given to Venkat MONTAGUE the charge nurse
== END 2019-08-16 03:12 ==
PROVIDERS: Emergency Provider Family Medicine; PCP Family Medicine
DX: N39.0 Urinary tract infection, site not specified (principal); Z79.02 Long term (current) use of antithrombotics/antiplatelets
CPT/HCPCS: 12345; 71045; 80053; 81001; 83605; 83690; 85025; 86140; 96372; 99282; 99283; J0696

== ENCOUNTER 2019-09-06 10:52 | Emergency (ER) | payer MEDICARE, OTHER, SELFPAY ==
[2019-09-06 10:55] VITALS: BP 118/55; BP 124/59; PULSE 64; PULSE 65; RESP 16; TEMP 36.4; O2SAT 93; O2SAT 95; BMI 21.9
--- NOTE | 2019-09-06 11:18 | CTR_ITS ---
PROCEDURE INFORMATION: Exam: CT Pelvis Without Contrast; Skeletal Exam date and time: 09/06/2019 12:20 PM Age: 79 years old Clinical indication: Hip pain; Bilateral; Additional info: Possible right hip fracture TECHNIQUE: Imaging protocol: Computed tomography images of the pelvis without contrast. Exam focused on the skeletal structures. Axial, coronal and sagittal reformatted images were created and reviewed. Radiation optimization: All CT scans at this facility use at least one of these dose optimization techniques: automated exposure control; mA and/or kV adjustment per patient size (includes targeted exams where dose is matched to clinical indication); or iterative reconstruction. COMPARISON: CR (PELVIS, ) 08/09/2019 12:20 PM RADIATION DOSE METRICS: Total DLP (mGy-cm): 771.24 FINDINGS: Vasculature: Mild atherosclerotic disease. Bones/joints: Osteopenia. No CT evidence of acute fracture or dislocation. Alignment anatomic. Severe right and mild left hip joint osteoarthrosis. Small right greater than left hip joint effusions. Degenerative changes of the lower lumbar spine, sacroiliac joints and pubic symphysis. Soft tissues: Mild subcutaneous edema overlying the left greater than right greater femoral trochanters. No organized collection or soft tissue mass. CT/CT pelvis wo con [id number] IMPRESSION: 1. No CT evidence of acute fracture or dislocation. If the patient's clinical symptoms persist or worsen, MRI would provide a more sensitive evaluation for occult fracture. 2. Additional findings, as above. Radiation Dose CTDIVOL = (mGy): DLP = 771.24 (mGy-cm)
--- NOTE | 2019-09-06 11:33 | W.ED.EXTPRO ---
HPI - Extremity Problem General: Chief complaint: Extremity Injury, Lower Stated complaint: RIGHT FEMUR FX Time Seen by Provider: 09/06/19 10:56 Source: family Mode of arrival: EMS Limitations: other (Dementia) History of Present Illness: HPI Narrative: Patient is an 79-year-old prison resident with dementia and is nonambulatory presents to the emergency department after an x-ray done at the prison showed she may have a possible right hip fracture. According to the patient's daughter the prison staff says the patient never fell. She had complained about left knee pain and on x-ray they found the hip fracture. She was then sent here to be evaluated. At baseline the patient is pretty drowsy and sleepy which her daughter says is usual for her. I was not able to obtain any history from the patient. Her daughter says most times when she talks her speech is not intelligent. Review of Systems General: Reports: ROS unobtainable due to mental status PFSH ED PFSH: Social History (Reviewed 09/06/19 @ 11:38 by Rolo Villegas MD, [facility]) Smoking and tobacco status: unknown if ever smoked Physical Exam Const: COMMON NORMALS: no acute distress and well nourished GENERAL APPEARANCE: well kempt HENMT: COMMON NORMALS: normocephalic and atraumatic HEAD & SCALP: normocephalic and atraumatic Neck/C-Spine: COMMON NORMALS: full ROM and no meningeal signs Chest: CHEST: No tenderness Resp: COMMON NORMALS: normal respiratory effort, No retractions and clear to auscultation bilaterally AUSCULTATION: clear to auscultation bilaterally Cardio: COMMON NORMALS: regular rate, regular rhythm, S1 normal heart sound present and S2 normal heart sound present RATE: regular rate RHYTHM: regular rhythm HEART SOUNDS: S1 normal heart sound present and S2 normal heart sound present GI: COMMON NORMALS: Normal to inspection, nondistended, normoactive bowel sounds present, Soft to palpation, non-tender and No hepatosplenomegaly present PALPATION: Yes Soft to palpation and Yes No hepatosplenomegaly present Extremity: COMMON NORMALS: normal to inspection NARRATIVE EXTREMITY EXAM: No bruising of her right hip noted. Right hip held in the flexed position. She has old bruises noted on both knees. 1+ pitting pedal edema. GENERAL: Yes edema Neuro: MENINGEAL SIGNS: Yes no meningeal signs Psych: APPEARANCE: Yes well kempt Course Reevaluation(s): Reevaluation #1: Discussed her CT scan findings with her daughter. Negative for acute fracture or dislocation. She has severe arthritis of the right hip. Since there is no evidence for fracture I will discharge her back to the prison with no new orders. The daughter voiced understanding and is in agreement with the plan Time: 13:20 Vital Signs: Vital signs: Vital Signs Temperature 97.5 F L 09/06/19 10:55 Pulse Rate 67 09/06/19 13:29 Respiratory Rate 18 09/06/19 13:29 Blood Pressure 110/65 09/06/19 13:29 Pulse Oximetry 92 09/06/19 13:29 MDM - Extremity (Nontraumatic) MDM Narrative: Medical decision making narrative: correction resident who had an x-ray in the prison suggestive of a right hip fracture. No falls or trauma. She was sent here for evaluation. CT scan of her pelvis was negative for acute fracture or dislocation. She is therefore discharged back to the prison with no new orders. Medical Records: Attestation: I reviewed the patient's medical records. Lab Data: Attestation: I reviewed the patient's lab results. Labs: Lab Results 09/06/19 09/06/19 Range/Units 11:58 11:58 WBC 4.5 (4.0-10.0) 10^3/ uL RBC 4.98 (4.1-5.3) 10^6/u L Hgb 15.7 H (11.5-15.3) g/dL Hct 47.1 H (37.0-47.0) % MCV 94.6 (81-99) fL MCH 31.5 (28.0-34.0) pg MCHC 33.3 (30.0-36.0) g/dL RDW 12.6 (12.1-15.1) % Plt Count 234 (130-400) 10^3/c mm MPV 9.9 (7.4-10.4) fL Neut % (Auto) 66.1 % Lymph % (Auto) 24.0 % [place] % (Auto) 7.2 % Eos % (Auto) 1.8 % Baso % (Auto) 0.7 % Neut # (Auto) 2.9 (1.8-7.7) 10^3/u L Lymph # (Auto) 1.1 (0.8-4.8) 10^3/u L [place] # (Auto) 0.3 (0.2-0.9) 10^3/u L Eos # (Auto) 0.1 (0.0-0.8) 10^3/u L Baso # (Auto) 0.0 (0.0-0.1) 10^3/u L Nucleated RBC % (a uto) 0 % Nucleated RBCs # 0.0 /100WBC Sodium 141 (136-145) mmol/L Potassium 4.3 (3.5-5.1) mmol/L Chloride 101 (98-107) mmol/L Carbon Dioxide 28 (22-29) mmol/L Anion Gap 16.3 (5-19) BUN 22 (8-23) mg/dL Creatinine 0.6 (0.5-0.9) mg/dL Glucose 106 (65-115) mg/dL Calculated Osmolal ity 289 (285-295) mOsm/k g Calcium 10.3 (8.5-10.5) mg/dL Total Bilirubin 0.8 (0.15-1.2) mg/dL AST 26 (0-32) U/L ALT 9 (0-33) U/L Alkaline Phosphata se 65 (35-105) IU/L Total Protein 7.2 (6.6-8.7) g/dL Albumin 4.5 (3.5-5.2) g/dL Globulin 2.7 (1.3-4.6) g/dL Imaging Data^: CT Abd/Pel: Radiologist's impression: [place] [address] CT Scan Report Signed Patient: Kate Rondon #: [id number] : 1940Acct#:[id number] Age/Sex: 79 / FADM Date: 09/06/19 Loc: ERRoom/Bed: Attending Dr: Ordering Provider/Ordering MD: Rolo Villegas MD, [facility] Date of Service: 09/06/19 Procedure(s): CT pelvis [facility] [address] Accession Number(s): [id number] Report Number: [id number] PROCEDURE INFORMATION: Exam: CT Pelvis Without Contrast; Skeletal Exam date and time: 09/06/2019 12:20 PM Age: 79 years old Clinical indication: Hip pain; Bilateral; Additional info: Possible right hip fracture TECHNIQUE: Imaging protocol: Computed tomography images of the pelvis without contrast. Exam focused on the skeletal structures. Axial, coronal and sagittal reformatted images were created and reviewed. Radiation optimization: All CT scans at this facility use at least one of these dose optimization techniques: automated exposure control; mA and/or kV adjustment per patient size (includes targeted exams where dose is matched to clinical indication); or iterative reconstruction. COMPARISON: CR (PELVIS, ) 08/09/2019 12:20 PM RADIATION DOSE METRICS: Total DLP (mGy-cm): 771.24 FINDINGS: Vasculature: Mild atherosclerotic disease. Bones/joints: Osteopenia. No CT evidence of acute fracture or dislocation. Alignment anatomic. Severe right and mild left hip joint osteoarthrosis. Small right greater than left hip joint effusions. Degenerative changes of the lower lumbar spine, sacroiliac joints and pubic symphysis. Soft tissues: Mild subcutaneous edema overlying the left greater than right greater femoral trochanters. No organized collection or soft tissue mass. CT/CT pelvis wo con [id number] IMPRESSION: 1. No CT evidence of acute fracture or dislocation. If the patient's clinical symptoms persist or worsen, MRI would provide a more sensitive evaluation for occult fracture. 2. Additional findings, as above. Radiation Dose CTDIVOL = (mGy): DLP = 771.24 (mGy-cm) Dictated By:Marty Ramirez MD Signed By:Marty Ramirez MDSigned Date/Time:09/06/19 130 DD/ 1304 Discharge Plan Discharge Patient Disposition: Xfer [facility] E Fac Not MCR Cert Clinical Impression: Osteoarthritis of right hip Qualifiers: Osteoarthritis type: primary Qualified Code(s): M16.11 - Unilateral primary osteoarthritis, right hip Condition: Stable Prescriptions: Continued Seroquel 50 mg Tablet See Rx Instructions .ROUTE .COMPLEX RF: 0 Milk of Magnesia 400 mg/5 mL Suspension See Rx Instructions .ROUTE .COMPLEX RF: 0 Preparation H Maximum Strength 0.25-1 % Cream See Rx Instructions .ROUTE .COMPLEX RF: 0 acetaminophen [Tylenol] 325 mg Tablet 325 mg PO Q6H PRN (Reason: Pain) RF: 0 trazodone 50 mg Tablet 25 mg PO BEDTIME RF: 0 clonazepam [Klonopin] 0.5 mg Tablet 0.5 mg PO TID RF: 0 simvastatin 10 mg Tablet 5 mg PO BEDTIME RF: 0 amlodipine 10 mg Tablet 10 mg PO DAILY RF: 0 bisacodyl [Dulcolax (bisacodyl)] 10 mg Suppository 10 mg SD DAILY PRN (Reason: Constipation) RF: 0 paroxetine HCl [Paxil] 20 mg Tablet 20 mg PO DAILY RF: 0 polyethylene glycol 3350 [Miralax] 17 gram/dose Powder 17 g PO DAILY RF: 0 carbidopa-levodopa 10-100 mg Tablet,Disintegrating 1 tab PO TID RF: 0 diclofenac sodium [Voltaren] 1 % Gel See Rx Instructions .ROUTE .COMPLEX RF: 0 clopidogrel 75 mg Tablet 75 mg PO DAILY RF: 0 levothyroxine 50 mcg Tablet 50 mcg PO DAILY RF: 0 Discharge Orders: Discharge Order (Routine); Ordered 09/06/19 Ordered By: Rolo Villegas Referrals: Dotty Callaway MD [Primary Care Provider] - 1-3 days Patient Instructions: Arthralgia (ED) Activity Restrictions/Additional Instructions: Return for any new or worsening symptoms. Follow-up with your primary care provider within 1 week. Discharge Date/Time: 09/06/19 15:04 Coding Level of Care Code ED Set Making Machine Operator for Chg Fwd Exam Comprehensive
[2019-09-06 11:58] VITALS: BP 115/54; PULSE 68; RESP 16; RESP 18; O2SAT 94
[2019-09-06] MEDS: morphine 4 mg/mL SDV 1 mL 2 MG IVP ×2 (11:58→12:19)
[2019-09-06 12:05] LABS: Basophils % 0.7 %; Eosinophils # 0.1 10^3/uL (0.0-0.8); Eosinophils % 1.8 %; Hematocrit 47.1 % (37.0-47.0); Hemoglobin 15.7 g/dL (11.5-15.3); Lymphocytes # 1.1 10^3/uL (0.8-4.8); Mean Corpuscular HGB Conc 33.3 g/dL (30.0-36.0); Mean Corpuscular Hemoglobin 31.5 pg (28.0-34.0); Mean Corpuscular Volume 94.6 fL (81-99); Mean Platelet Volume 9.9 fL (7.4-10.4); Monocytes # 0.3 10^3/uL (0.2-0.9); Monocytes % 7.2 %; Neutrophils # 2.9 10^3/uL (1.8-7.7); Neutrophils % 66.1 %; Nucleated Red Blood Cells % 0 %; Platelet Count 234 10^3/cmm (130-400); Red Blood Count 4.98 10^6/uL (4.1-5.3); Red Cell Distribution Width 12.6 % (12.1-15.1); White Blood Count 4.5 10^3/uL (4.0-10.0)
[2019-09-06 12:19] VITALS: RESP 18
[2019-09-06 12:19] LABS: Alanine Aminotransferase 9 U/L (0-33); Albumin Level 4.5 g/dL (3.5-5.2); Alkaline Phosphatase 65 IU/L (35-105); Anion Gap 16.3 (5-19); Aspartate Amino Transferase 26 U/L (0-32); Blood Urea Nitrogen 22 mg/dL (8-23); Calcium 10.3 mg/dL (8.5-10.5); Carbon Dioxide 28 mmol/L (22-29); Chloride 101 mmol/L (98-107); Creatinine Clr Calc Pharmacy 55.2156; Globulin 2.7 g/dL (1.3-4.6); Glucose 106 mg/dL (65-115); Osmolality Calculated 289 mOsm/kg (285-295); Potassium 4.3 mmol/L (3.5-5.1); Sodium 141 mmol/L (136-145); Total Bilirubin 0.8 mg/dL (0.15-1.2); Total Protein 7.2 g/dL (6.6-8.7)
[2019-09-06 12:49] VITALS: BP 114/61; PULSE 72; RESP 15; O2SAT 92
[2019-09-06 13:29] VITALS: BP 110/65; PULSE 67; RESP 18; O2SAT 92
== END 2019-09-06 15:04 ==
PROVIDERS: Emergency Provider Family Medicine; PCP Family Medicine
DX: M16.11 Unilateral primary osteoarthritis, right hip (principal)
CPT/HCPCS: 12345; 72192; 80053; 85025; 96374; 96375; 96376; 99282; 99283; J2270

== ENCOUNTER 2019-10-23 09:56 | Emergency (ER) | payer MEDICARE, OTHER, SELFPAY ==
[2019-10-23 09:59] VITALS: BP 111/66; PULSE 107; RESP 22; TEMP 37.5; O2SAT 95; BMI 26.6
--- NOTE | 2019-10-23 10:04 | XRR_ITS ---
PROCEDURE INFORMATION: Exam: XR Chest, 1 View Exam date and time: 10/23/2019 10:50 AM Age: 79 years old Clinical indication: Patient HX: Fever, low blood pressure, elevated heart rate since 10/22/19; Additional info: AMS TECHNIQUE: Imaging protocol: XR of the chest Views: 1 view. COMPARISON: CR XR chest 1V portable [id number] 08/15/2019 6:38 PM FINDINGS: Lungs: Mild basilar atelectasis versus infiltrate right lung base greater than left. Subpulmonic effusions. Pleural space: See Lungs finding. Heart/Mediastinum: Unremarkable. No cardiomegaly. Bones/joints: Unremarkable. XR/XR chest 1V portable [id number] IMPRESSION: Mild basilar atelectasis versus infiltrate right lung base greater than left. Subpulmonic effusions.
--- NOTE | 2019-10-23 10:05 | ECG_ITS ---
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 Measurements Intervals Eckert Rate: 104 P: 78 AL: 168 QRS: -14 QRSD: 92 T: 66 QT: 328 QTc: 433 Interpretive Statements SINUS TACHYCARDIA LOW QRS VOLTAGE IN PRECORDIAL LEADS [QRS DEFLECTION < 1.0 mV IN CHEST LEADS] SEPTAL MYOCARDIAL INFARCTION , OF INDETERMINATE AGE [40+ ms Q WAVE IN V1/V2] Compared to ECG 08/09/2019 11:40:34 Sinus rhythm no longer present Myocardial infarct finding still present Electronically Signed On 10-23-2019 20:20:02 CDT by Ching Patel M.D. [id number]
--- NOTE | 2019-10-23 10:13 | W.ED.GENADLT ---
HPI - General Adult General: Chief complaint: Fever Stated complaint: AMS/ LOW BP/ INCREASED HR Time Seen by Provider: 10/23/19 10:03 History of Present Illness: HPI narrative: Patient arrives via ambulance from the custodial for fever increased dementia problems. Patient was treated for a chipped tooth yesterday placed on antibiotics because she had a fever they thought he might have an abscess. She is given hydrocodone for pain this morning. Patient not responding as she normally does as per custodial staff. Has history of Lewy body dementia history UTIs does require assistance with ambulation Onset (ago): day(s) Associated symptoms: Reports fevers/chills; Deny chest pain, dyspnea, headache(s), nausea, rash or vomiting Review of Systems Narrative: Possible dental abscess as per custodial Const: Reports: fever(s); Denies: chills or body aches Eyes: Denies: change in vision or blurry vision ENMT: Denies: throat pain or nasal congestion Card: Denies: chest pain or dyspnea on exertion Resp: Denies: dyspnea, productive cough or non-productive cough GI: Denies: abdominal pain, nausea or vomiting Musc: Denies: extremity pain Skin/Breast: Denies: rash Neuro: Reports: other (Mental status changes); Denies: headache(s) Psych: Denies: anxiety or depression Jefferson/Lymph: Denies: easy bruising PFSH ED PFSH: Social History (Reviewed 09/06/19 @ 11:38 [place] Rolo Villegas [place], [facility] [facility] [place] Smoking and tobacco status: unknown if ever smoked Physical Exam Const: COMMON NORMALS: no acute distress, average body habitus and alert HENMT: COMMON NORMALS: normocephalic HEAD & SCALP: normal to inspection and normocephalic FACE & SINUS: normal facial exam MOUTH: other (Mouth is dry lot of food particles in the mouth and around the teeth) TEETH & GINGIVA: Yes other (Possible broken upper molar left side gums are red) Eye: COMMON NORMALS: conjunctivae normal GENERAL EYE: appearance normal, both eyes and all related structures CONJUNCTIVA: Yes conjunctivae normal Neck/C-Spine: COMMON NORMALS: no JVD Chest: COMMONS NORMALS: normal inspection of the chest Resp: COMMON NORMALS: normal respiratory effort AUSCULTATION: diminished lung sounds Cardio: COMMON NORMALS: no JVD, regular rate and regular rhythm RATE: regular rate RHYTHM: regular rhythm GI: COMMON NORMALS: Normal to inspection, nondistended, normoactive bowel sounds present PALPATION: Yes Tenderness to palpation present (GI) (Diffuse mild) Extremity: COMMON NORMALS: normal to inspection and full ROM Neuro: SENSORIUM/ORIENTATION: Yes alert and Yes other (Patient is responding somewhat to questions hard to tell she is orientated to place time. She does answer questions whether she is feeling better hurting.) Course Vital Signs: Vital signs: Vital Signs Temperature 99.5 F 10/23/19 09:59 Pulse Rate 98 10/23/19 11:56 Respiratory Rate 24 H 10/23/19 11:56 Blood Pressure 112/59 10/23/19 11:56 Pulse Oximetry 95 10/23/19 11:56 MDM - General Adult MDM Narrative: Medical decision making narrative: Discussed labs and course of treatment with Dr. Villegas sided send patient back to custodial based on presenting information Lab Data: Labs: Lab Results 10/23/19 10/23/19 10/23/19 Range/Units 09:39 09:39 09:39 WBC 16.7 H (4.0-10.0) 10^3/ uL RBC 4.38 (4.1-5.3) 10^6/u L Hgb 13.7 (11.5-15.3) g/dL Hct 41.4 (37.0-47.0) % MCV 94.5 (81-99) fL MCH 31.3 (28.0-34.0) pg MCHC 33.1 (30.0-36.0) g/dL RDW 13.2 (12.1-15.1) % Plt Count 249 (130-400) 10^3/c mm MPV 10.1 (7.4-10.4) fL Neut % (Auto) 90.1 % Lymph % (Auto) 6.0 % Haywood % (Auto) 2.5 % Eos % (Auto) 0.0 % Baso % (Auto) 0.1 % Neut # (Auto) 15.05 H (1.8-7.7) 10^3/u L Lymph # (Auto) 1.0 (0.8-4.8) 10^3/u L Haywood # (Auto) 0.4 (0.2-0.9) 10^3/u L Eos # (Auto) 0.0 (0.0-0.8) 10^3/u L Baso # (Auto) 0.0 (0.0-0.1) 10^3/u L Nucleated RBC % (a uto) 0 % Nucleated RBCs # 0.0 /100WBC PT (12.1-14.9) SECO NDS INR (0.8-1.2) Sodium 141 (136-145) mmol/L Potassium 3.6 (3.5-5.1) mmol/L Chloride 104 (98-107) mmol/L Carbon Dioxide 25 (22-29) mmol/L Anion Gap 15.6 (5-19) BUN 36 H (8-23) mg/dL Creatinine 0.6 (0.5-0.9) mg/dL GFR Calculation Not Reportable Glucose 140 H (65-115) mg/dL Calculated Osmolal ity 292 (285-295) mOsm/k g Lactate (0.5-2.2) mmol/L Calcium 8.9 (8.5-10.5) mg/dL Total Bilirubin 1.1 (0.15-1.2) mg/dL AST 50 H (0-32) U/L ALT 25 (0-33) U/L Alkaline Phosphata se 124 H (35-105) IU/L Troponin T Baselin e 45 H (0-10) ng/L Troponin T 120 Min [place] (0-10) ng/L Delta Troponin T (0-10) ABS# Total Protein 6.2 L (6.6-8.7) g/dL Albumin 3.3 L (3.5-5.2) g/dL Globulin 2.9 (1.3-4.6) g/dL Lipase (13-60) U/L TSH 1.36 (0.27-4.20) uIU/ mL Urine Color (Yellow) Urine Appearance (CLEAR) Urine pH (5-7) Ur Specific Gravit y (1.005-1.030) Urine Protein (Negative) Urine Glucose (UA) (Normal) Urine Ketones (Negative) Urine Blood (Negative) Urine Nitrate (Negative) Urine Bilirubin (NEGATIVE) Urine Urobilinogen (Negative) mg/dL Ur Leukocyte Ann ase (Negative) Urine RBC (0-2) /hpf Urine WBC (0-5) /hpf Ur Squamous Epith Cells (0-5) Amorphous Sediment Urine Bacteria (NONE) 10/23/19 10/23/19 10/23/19 Range/Units 09:39 09:39 10:31 WBC (4.0-10.0) 10^3/ uL RBC (4.1-5.3) 10^6/u L Hgb (11.5-15.3) g/dL Hct (37.0-47.0) % MCV (81-99) fL MCH (28.0-34.0) pg MCHC (30.0-36.0) g/dL RDW (12.1-15.1) % Plt Count (130-400) 10^3/c mm MPV (7.4-10.4) fL Neut % (Auto) % Lymph % (Auto) % Haywood % (Auto) % Eos % (Auto) % Baso % (Auto) % Neut # (Auto) (1.8-7.7) 10^3/u L Lymph # (Auto) (0.8-4.8) 10^3/u L Haywood # (Auto) (0.2-0.9) 10^3/u L Eos # (Auto) (0.0-0.8) 10^3/u L Baso # (Auto) (0.0-0.1) 10^3/u L Nucleated RBC % (a uto) % Nucleated RBCs # /100WBC PT 16.70 H (12.1-14.9) SECO NDS INR 1.30 H (0.8-1.2) Sodium (136-145) mmol/L Potassium (3.5-5.1) mmol/L Chloride (98-107) mmol/L Carbon Dioxide (22-29) mmol/L Anion Gap (5-19) BUN (8-23) mg/dL Creatinine (0.5-0.9) mg/dL GFR Calculation Glucose (65-115) mg/dL Calculated Osmolal ity (285-295) mOsm/k g Lactate 1.4 (0.5-2.2) mmol/L Calcium (8.5-10.5) mg/dL Total Bilirubin (0.15-1.2) mg/dL AST (0-32) U/L ALT (0-33) U/L Alkaline Phosphata se (35-105) IU/L Troponin T Baselin e (0-10) ng/L Troponin T 120 Min [place] (0-10) ng/L Delta Troponin T (0-10) ABS# Total Protein (6.6-8.7) g/dL Albumin (3.5-5.2) g/dL Globulin (1.3-4.6) g/dL Lipase 10 L (13-60) U/L TSH (0.27-4.20) uIU/ mL Urine Color (Yellow) Urine Appearance (CLEAR) Urine pH (5-7) Ur Specific Gravit y (1.005-1.030) Urine Protein (Negative) Urine Glucose (UA) (Normal) Urine Ketones (Negative) Urine Blood (Negative) Urine Nitrate (Negative) Urine Bilirubin (NEGATIVE) Urine Urobilinogen (Negative) mg/dL Ur Leukocyte Ann ase (Negative) Urine RBC (0-2) /hpf Urine WBC (0-5) /hpf Ur Squamous Epith Cells (0-5) Amorphous Sediment Urine Bacteria (NONE) 10/23/19 10/23/19 Range/Units 11:00 11:28 WBC (4.0-10.0) 10^3/ uL RBC (4.1-5.3) 10^6/u L Hgb (11.5-15.3) g/dL Hct (37.0-47.0) % MCV (81-99) fL MCH (28.0-34.0) pg MCHC (30.0-36.0) g/dL RDW (12.1-15.1) % Plt Count (130-400) 10^3/c mm MPV (7.4-10.4) fL Neut % (Auto) % Lymph % (Auto) % Haywood % (Auto) % Eos % (Auto) % Baso % (Auto) % Neut # (Auto) (1.8-7.7) 10^3/u L Lymph # (Auto) (0.8-4.8) 10^3/u L [place]wood # (Auto) (0.2-0.9) 10^3/u L Eos # (Auto) (0.0-0.8) 10^3/u L Baso # (Auto) (0.0-0.1) 10^3/u L Nucleated RBC % (a uto) % Nucleated RBCs # /100WBC PT (12.1-14.9) SECO NDS INR (0.8-1.2) Sodium (136-145) mmol/L Potassium (3.5-5.1) mmol/L Chloride (98-107) mmol/L Carbon Dioxide (22-29) mmol/L Anion Gap (5-19) BUN (8-23) mg/dL Creatinine (0.5-0.9) mg/dL GFR Calculation Glucose (65-115) mg/dL Calculated Osmolal ity (285-295) mOsm/k g Lactate (0.5-2.2) mmol/L Calcium (8.5-10.5) mg/dL Total Bilirubin (0.15-1.2) mg/dL AST (0-32) U/L ALT (0-33) U/L Alkaline Phosphata se (35-105) IU/L Troponin T Baselin e (0-10) ng/L Troponin T 120 Min [place] 43.69 H (0-10) ng/L Delta Troponin T -1.31 L (0-10) ABS# Total Protein (6.6-8.7) g/dL Albumin (3.5-5.2) g/dL Globulin (1.3-4.6) g/dL Lipase (13-60) U/L TSH (0.27-4.20) uIU/ mL Urine Color Brown (Yellow) Urine Appearance Turbid A (CLEAR) Urine pH 5 (5-7) Ur Specific Gravit y 1.025 (1.005-1.030) Urine Protein 2+ H (Negative) Urine Glucose (UA) Norm (Normal) Urine Ketones Negative (Negative) Urine Blood 3+ H (Negative) Urine Nitrate Negative (Negative) Urine Bilirubin 1+ H (NEGATIVE) Urine Urobilinogen 4 H (Negative) mg/dL Ur Leukocyte Ann ase 2+ H (Negative) Urine RBC 0-4 H (0-2) /hpf Urine WBC Too numerous to c nt H (0-5) /hpf Ur Squamous Epith Cells 0-4 H (0-5) Amorphous Sediment Not Reportable Urine Bacteria 2+ H (NONE) Discharge Plan Discharge Patient Disposition: [facility] Clinical Impression: Acute UTI Condition: Stable Discharge Orders: Discharge Order (Routine); Ordered 10/23/19 Ordered By: Demian Palma Referrals: Dotty Callaway MD [Primary Care Provider] - Discharge Diet: Advance as tolerated Discharge Activity: Increase activity as tolerated Patient Instructions: Urinary Tract Infection in Women (ED) Activity Restrictions/Additional Instructions: Follow-up with medical provider as directed. Take medications as prescribed. Return to the ER or your medical provider if condition worsens. Please read and understand discharge instructions. If any questions ask please. Make sure patient gets plenty of fluids. Sure patient gets regular scheduled bathroom visits. Discussed with caregiver about prophylactic daily antibiotic. Coding Level of Care Code ED Mdm Sr for Elizabeth Fwd Exam Comprehensive
[2019-10-23 10:14] LABS: Basophils % 0.1 %; Hematocrit 41.4 % (37.0-47.0); Hemoglobin 13.7 g/dL (11.5-15.3); Mean Corpuscular HGB Conc 33.1 g/dL (30.0-36.0); Mean Corpuscular Hemoglobin 31.3 pg (28.0-34.0); Mean Corpuscular Volume 94.5 fL (81-99); Mean Platelet Volume 10.1 fL (7.4-10.4); Monocytes # 0.4 10^3/uL (0.2-0.9); Monocytes % 2.5 %; Neutrophils # 15.05 10^3/uL (1.8-7.7); Neutrophils % 90.1 %; Nucleated Red Blood Cells % 0 %; Platelet Count 249 10^3/cmm (130-400); Red Blood Count 4.38 10^6/uL (4.1-5.3); Red Cell Distribution Width 13.2 % (12.1-15.1); White Blood Count 16.7 10^3/uL (4.0-10.0)
[2019-10-23 10:34] VITALS: BP 111/63; PULSE 104; RESP 22; O2SAT 94
[2019-10-23 10:45] LABS: Troponin(5th) Baseline 45 ng/L (0-10)
[2019-10-23 10:53] LABS: Alanine Aminotransferase 25 U/L (0-33); Albumin Level 3.3 g/dL (3.5-5.2); Alkaline Phosphatase 124 IU/L (35-105); Anion Gap 15.6 (5-19); Aspartate Amino Transferase 50 U/L (0-32); Blood Urea Nitrogen 36 mg/dL (8-23); Calcium 8.9 mg/dL (8.5-10.5); Carbon Dioxide 25 mmol/L (22-29); Chloride 104 mmol/L (98-107); Globulin 2.9 g/dL (1.3-4.6); Glucose 140 mg/dL (65-115); Osmolality Calculated 292 mOsm/kg (285-295); Potassium 3.6 mmol/L (3.5-5.1); Sodium 141 mmol/L (136-145); Thyroid Stimulating Hormone 1.36 uIU/mL (0.27-4.20); Total Bilirubin 1.1 mg/dL (0.15-1.2); Total Protein 6.2 g/dL (6.6-8.7)
[2019-10-23 10:55] LABS: Lactate (Lactic Acid level) 1.4 mmol/L (0.5-2.2)
[2019-10-23 11:01] LABS: Lipase 10 U/L (13-60)
[2019-10-23] MEDS: cefTRIAXone 1,000 MG in sodium chloride 0.9% (plus) 50 ML 100 MG IV (11:13)
[2019-10-23 11:19] LABS: Glucose Urine UA Norm (Normal); Ketones Urine Negative (Negative); Protein Urine 2+ (Negative); Specific Gravity, Urine 1.025 (1.005-1.030); Urine Appearance Turbid (CLEAR); Urine Color Brown (Yellow); pH Urine 5 (5-7)
[2019-10-23 11:20] LABS: Add Urine Microscopic? YES; Bilirubin Urine 1+ (NEGATIVE); Blood Urine 3+ (Negative); Leukocyte Esterase Urine 2+ (Negative); Nitrate Urine Negative (Negative); Urobilinogen Urine 4 mg/dL (Negative)
[2019-10-23 11:24] LABS: RBC Urine 0-4 /hpf (0-2); Squamous Epithelial Cell Urine 0-4 (0-5); WBC Urine TOO NUMEROUS TO CNT /hpf (0-5)
[2019-10-23 11:25] LABS: Add Urine Culture? Yes; Bacteria Urine 2+
[2019-10-23 11:56] VITALS: BP 112/59; PULSE 98; RESP 24; O2SAT 95
[2019-10-23 11:56] LABS: Troponin 5 2HR 43.69 ng/L (0-10)
--- NOTE | 2019-10-23 12:05 | ECG_ITS ---
[facility] Test Date: 2019-10-23 Pat Name: Kate Rondon Department: Room: Gender: Female Manager [employer]: : 1940 Requested By: Demian Palma Order Number: [id number] Michelle MD: Ching Patel M.D. Measurements Intervals Marshall Rate: 103 P: 67 AK: 165 QRS: -13 QRSD: 92 T: 35 QT: 338 QTc: 444 Interpretive Statements SINUS TACHYCARDIA LOW QRS VOLTAGE IN PRECORDIAL LEADS [QRS DEFLECTION < 1.0 mV IN CHEST LEADS] SEPTAL MYOCARDIAL INFARCTION , OF INDETERMINATE AGE [40+ ms Q WAVE IN V1/V2] Compared to ECG 10/23/2019 10:17:59 No significant changes Electronically Signed On 10-23-2019 20:47:23 CDT by Ching Patel M.D. [id number]
[2019-10-23 12:20] LABS: Troponin 5 2HR Delta -1.31 ABS# (0-10)
[2019-10-23 12:35] VITALS: BP 109/59; PULSE 101; RESP 18; O2SAT 95
[2019-10-24 10:58] LABS: Other Sediment, Urine BUD YEAST W/HYPHAE
== END 2019-10-23 13:00 ==
PROVIDERS: Emergency Provider Nurse Practitioner Family; PCP Family Medicine
DX: N39.0 Urinary tract infection, site not specified (principal)
CPT/HCPCS: 12345; 36415; 51701; 71045; 80053; 81001; 83605; 83690; 84443; 84484; 85025; 85610; 87040; 87086; 87106; 93005; 96365; 99283; 99285; J0696

== ENCOUNTER 2019-10-27 18:28 | Emergency (ER) | payer MEDICARE, OTHER, SELFPAY ==
[2019-10-27 18:29] VITALS: PULSE 86; RESP 18; TEMP 36.9; O2SAT 94; BMI 21.9
--- NOTE | 2019-10-27 18:35 | USCV_ITS ---
Kate Rondon Age: 79 Gender: F : 1940 Exam Date: 10/27/2019 19:08 Ordering Phys: Bruno Acuna MD Technologist: Elias Verdin Exam Location: [facility] Indication: RT ARM PAIN HISTORY: Upper extremity edema. PROCEDURES: 2-D, Doppler and augmentation imaging is submitted of the right upper extremity venous system extending from the right jugular vein through the radial and ulnar veins. The cephalic vein is also included.. FINDINGS: No evidence of deep vein thrombosis or superficial thrombophlebitis in the right upper extremity. CONCLUSIONS No evidence of venous thrombosis in the above-mentioned identifiable veins Dr Aydin Nunes MD [facility] (Electronically Signed) Final Date: 28 October 2019 15:04 S
[2019-10-27 18:36] VITALS: BP 108/72; PULSE 87; PULSE 88; RESP 18; O2SAT 94
--- NOTE | 2019-10-27 18:36 | W.ED.GENADLT ---
HPI - General Adult General: Chief complaint: Extremity Problem,Nontraumatic Stated complaint: Right hand swelling Time Seen by Provider: 10/27/19 18:32 Source: family and EMS Mode of arrival: EMS Limitations: altered mental status History of Present Illness: HPI narrative: 79-year-old female who has a history of Lewy body dementia who is here from custodial. [facility] was concerned she could have DVT in her right arm she had some swelling to the right wrist. Patient was here recently and had an IV in that arm and has bruising at that site. No history available pay from patient due to dementia. Patient is bedbound. Patient's had no recent injuries. Review of Systems General: Reports: ROS unobtainable due to mental status PFSH ED PFSH: Social History (Reviewed 09/06/19 @ 11:38 by Rolo Villegas MD, [facility] [place] Smoking and tobacco status: unknown if ever smoked Physical Exam Const: COMMON NORMALS: no acute distress; negative for patient oriented x3 EXAM LIMITATIONS: altered mental status HENMT: COMMON NORMALS: normocephalic and atraumatic HEAD & SCALP: normocephalic and atraumatic Eye: COMMON NORMALS: Equal, round and reactive pupils present and EOMs intact bilaterally PUPIL: Yes Equal, round and reactive pupils present Neck/C-Spine: COMMON NORMALS: full ROM and supple Chest: COMMONS NORMALS: normal inspection of the chest and normal palpation of entire chest wall Resp: COMMON NORMALS: normal respiratory effort, No retractions, No use of accessory muscles and clear to auscultation bilaterally AUSCULTATION: clear to auscultation bilaterally Cardio: COMMON NORMALS: regular rate, regular rhythm and No murmurs present (Cardio) RATE: regular rate RHYTHM: regular rhythm GI: COMMON NORMALS: Normal to inspection, nondistended, normoactive bowel sounds present, Soft to palpation, non-tender and no masses PALPATION: Yes Soft to palpation Extremity: NARRATIVE EXTREMITY EXAM: Contusion to right forearm from where an IV was placed slight erythema does have a small 1 cm blister Neuro: COMMON NORMALS: negative for patient oriented x3 Psych: COMMON NORMALS: negative for mental status grossly normal Skin: COMMON NORMALS: no rashes or lesions noted and no wounds GENERAL SKIN EXAM: no rashes or lesions noted Course Vital Signs: Vital signs: Vital Signs Temperature 98.5 F 10/27/19 18:29 Pulse Rate 88 10/27/19 18:36 Respiratory Rate 18 10/27/19 18:36 Blood Pressure 108/72 10/27/19 18:36 Pulse Oximetry 94 10/27/19 18:36 MDM - General Adult MDM Narrative: Medical decision making narrative: Patient presents here with contusion to right forearm likely from recent IV placement. She has some slight skin irritation with no signs of infection. Patient is currently on Amoxil for UTI. Patient is stable for discharge will discharge back to custodial. Imaging Data^: US Vascular: Attestation: I personally reviewed and interpreted this imaging study as follows: My impression: no dvt Discharge Plan Discharge Patient Disposition: Home Clinical Impression: Swelling of right upper extremity Condition: Stable Prescriptions: No Action quetiapine [Seroquel] 50 mg Tablet 150 mg PO BID RF: 0 magnesium hydroxide [Milk of Magnesia] 400 mg/5 mL Suspension See Rx Instructions .ROUTE .COMPLEX RF: 0 Preparation H Maximum Strength 0.25-1 % Cream See Rx Instructions .ROUTE .COMPLEX RF: 0 amoxicillin 500 mg Capsule 500 mg PO BID RF: 0 mirtazapine [Remeron] 15 mg Tablet 7.5 mg PO BEDTIME RF: 0 Culturelle 10 billion cell Capsule 1 cap PO DAILY RF: 0 Nutritional Drink Liquid 60 ea PO TID RF: 0 nitrofurantoin monohyd/m-cryst [Macrobid] 100 mg capsule 100 mg PO BID 7 Days Qty: 14 RF: 0 acetaminophen [Tylenol] 325 mg Tablet 325 mg PO Q6H PRN (Reason: Pain) RF: 0 trazodone 50 mg Tablet 25 mg PO BEDTIME RF: 0 clonazepam [Klonopin] 0.5 mg Tablet 0.5 mg PO TID RF: 0 simvastatin 10 mg Tablet 5 mg PO BEDTIME RF: 0 amlodipine 10 mg Tablet 10 mg PO DAILY RF: 0 bisacodyl [Dulcolax (bisacodyl)] 10 mg Suppository 10 mg [place] DAILY PRN (Reason: Constipation) RF: 0 paroxetine HCl [Paxil] 20 mg Tablet 20 mg PO DAILY RF: 0 polyethylene glycol 3350 [Miralax] 17 gram/dose Powder 17 g PO DAILY RF: 0 carbidopa-levodopa 10-100 mg Tablet,Disintegrating 1 tab PO TID RF: 0 diclofenac sodium [Voltaren] 1 % Gel See Rx Instructions .ROUTE .COMPLEX RF: 0 clopidogrel 75 mg Tablet 75 mg PO DAILY RF: 0 levothyroxine 50 mcg Tablet 50 mcg PO DAILY RF: 0 hydrocodone-acetaminophen 5-325 mg tablet 1 tab PO Q6H PRN (Reason: Severe Pain (Scale Score 7-10)) RF: 0 tramadol 50 mg tablet 50 mg PO Q6H PRN (Reason: moderate or severe pain) RF: 0 Fleet Enema 19-7 gram/118 mL Enema 118 ml [place] DAILY PRN (Reason: Constipation) RF: 0 Triple Antibiotic 3.5-400-5,000 [id number] Ointment In Packet 1 applic TOPICAL BID RF: 0 Discharge Orders: Discharge Order (Routine); Ordered 10/27/19 Ordered By: Bruno Acuna Referrals: Dotty Callaway MD [Primary Care Provider] - 1-3 days Discharge Diet: Advance as tolerated Discharge Activity: Resume usual activity Patient Instructions: Cellulitis (ED) Coding Level of Care Code ED Microfilm Duplicating Unit Supervisor for Chg Fwd Exam Comprehensive
--- NOTE | 2019-10-27 18:46 | PC.NURSE ---
US at bedside
--- NOTE | 2019-10-27 20:37 | PC.NURSE ---
Report called to Willow MONTAGUE at [facility].
[2019-10-27 20:39] VITALS: BP 122/63; PULSE 86; RESP 16; O2SAT 90
== END 2019-10-27 20:46 | disposition home or self-care (01) ==
PROVIDERS: Emergency Provider Emergency Medicine; PCP Family Medicine
DX: M79.89 Other specified soft tissue disorders (principal); Z79.02 Long term (current) use of antithrombotics/antiplatelets
CPT/HCPCS: 12345; 93971; 99282